=== PATIENT | female | born 1965 ===

== ENCOUNTER 2016-11-15 13:27 | Emergency (ER) | payer SELFPAY ==
--- NOTE | 2016-11-15 13:53 | ED PDOC ---
HPI: General Adult Time Seen by Provider: 11/15/16 13:36 Chief Complaint (Nursing): Female Genitourinary Chief Complaint (Provider): multiple medical complaints History Per: Patient Additional Complaint(s): 51-year-old female presents to emergency department for evaluation of ongoing abdominal pain for several months. Patient also has bilateral hip pain and pain to right calf. Patient relocated here from [place] in September and currently lives [facility] and has no primary doctor. She has known lrge fibroid tumor that has been bothering her for the past 2 weeks but has been presents for several years. She denies any current vaginal bleeding or discharge. She also has had bilateral hip pain for the past several months. Right calf started hurting her a few days ago. No recent trauma. Patient used to take tramadol and ibuprofen for the chronic hip pain but hasn't taken this medication in a couple of months. She denies fever or chills. Patient developed nausea and vomiting today. She arrives via ambulance for evaluation. She denies any chest pain, shortness of breath or dyspnea on exertion. Past Medical History Reviewed: Historical Data Vital Signs: Last Vital Signs Temp 98 F 11/15/16 18:41 Pulse 86 11/15/16 18:41 Resp 20 11/15/16 18:41 BP 149/74 11/15/16 18:41 Pulse Ox 99 11/15/16 19:41 - Medical History PMH: HTN (was no meds but off them for the past 3 months) - Family History Family History: States: No Known Family Hx - Living Arrangements Living Arrangements: Other (lives in prison) - Social History Current smoker - smoking cessation education provided: No Alcohol: None Drugs: Denies - Home Medications Home Medications: Ambulatory Orders Medication Instructions Recorded Naproxen [Naprosyn] 500 mg PO BID #20 tab 11/15/16 traMADol [Ultram] 50 mg PO TID PRN #15 tab 11/15/16 - Allergies Allergies/Adverse Reactions: Allergies Allergy/AdvReac Type Severity Reaction Status Date / Time No Known Allergies Allergy Verified 11/15/16 13:30 Review of Systems ROS Statement: Except As Marked, All Systems Reviewed And Found Negative Constitutional: Negative for: Fever, Chills Cardiovascular: Negative for: Chest Pain Gastrointestinal: Positive for: Nausea, Vomiting, Abdominal Pain (fibroid tumor) Genitourinary Female: Negative for: Dysuria, Frequency, Incontinence, Hematuria Musculoskeletal: Positive for: Other (chronic bilateral hip pain, right calf pain, no recent trauma) Neurological: Negative for: Weakness, Numbness, Headache, Dizziness Physical Exam - Reviewed Nursing Documentation Reviewed: Yes Vital Signs Reviewed: Yes - Physical Exam Appears: Positive for: Well Head Exam: Positive for: ATRAUMATIC, NORMAL INSPECTION Skin: Negative for: Rash Eye Exam: Positive for: Normal appearance, EOMI, PERRL Cardiovascular/Chest: Positive for: Regular Rate, Rhythm Respiratory: Positive for: Normal Breath Sounds Gastrointestinal/Abdominal: Positive for: Other (Morbidly obese abdomen with palpable mass noted to pelvic region, no rebound, no guarding) Extremity: Positive for: Calf Tenderness (right) Neurologic/Psych: Positive for: Alert, Oriented. Negative for: Aphasia, Facial Droop - Laboratory Results Result Diagrams: 11/15/16 12:00 11/15/16 12:00 Urine dip results: Positive for: Blood (moderate). Negative for: Leukocyte Esterase, Nitrate, Ketones, Glucose, Bilirubin, Protein - ECG O2 Sat by Pulse Oximetry: 99 Pulse Ox Interpretation: Normal - Other Rad Bilateral hips with pelvis x-rays X-Ray: Interpreted by Me, Viewed By Me X-Ray Interpretation: no fx, no dis Doppler right leg X-Ray: Read By Radiologist X-Ray Interpretation: no DVT CT abd and pelvis with IV contrast X-Ray: Read By Radiologist X-Ray Interpretation: see below Medical Decision Making Medical Decision Makin51 year old with abdominal pain and vomiting, bilateral hip pain and right calf pain Plan: CT abdomen and pelvis with IV contrast CBC CMP Lipase Urine dip IV fluids IV Toradol PO tramadol US right leg X-rays bilateral hips and pelvis CT: REPRODUCTIVE: There is a lobulated fibroid uterus measuring 9 cm AP by 11 cm with by 11 cm length. There is no fluid in the cul-de-sac. No acute intra- abdominal abnormality. Above CT results discussed with Dr. Worthington, OB external relations director who states to refer patient women's clinic. Patient aware of all diagnostic testing results. Patient was noted to be ambulatory to bathroom with steady gait. Prescriptions given for Naprosyn and tramadol for pain control. Patient was referred to clinic for follow-up. Disposition - Clinical Impression Clinical Impression: Hip pain, Fibroid - Patient ED Disposition Is Patient to be Admitted: No Counseled Patient/Family Regarding: Studies Performed, Diagnosis, Need For Followup, Rx Given - Disposition Referrals: [facility] [Provider Group] [facility] [Outside] Disposition: Routine/Home Disposition Time: 18:29 Condition: STABLE Additional Instructions: Take prescription medications as directed as needed for pain. Follow-up with clinic for further evaluation. Prescriptions: Naproxen [Naprosyn] 500 mg PO BID #20 tab traMADol [Ultram] 50 mg PO TID PRN #15 tab PRN Reason: Pain, Moderate (4-7) Instructions: Uterine Fibroids (ED), Hip Pain (ED) Results - Lab Results Lab Results: 11/15/16 12:00 WBC 5.4 RBC 5.42 H Hgb 12.1 Hct 38.3 MCV 70.8 L MCH 22.4 L MCHC 31.7 L RDW 17.0 H Plt Count 220 MPV 8.5 Neut % (Auto) 82.2 H Lymph % (Auto) 10.6 L [place] % (Auto) 5.5 Eos % (Auto) 1.4 Baso % (Auto) 0.3 Neut # 4.5 Lymph # 0.6 L [place] # 0.3 Eos # 0.1 Baso # 0.0 Sodium 143 Potassium 3.6 Chloride 104 Carbon Dioxide 23 Anion Gap 19 BUN 11 Creatinine 0.6 L Est GFR ( Amer) > 60 Est GFR (Non-Af Amer) > 60 Random Glucose 110 H Calcium 9.1 Total Bilirubin 0.8 AST 25 ALT 30 Alkaline Phosphatase 83 Total Protein 8.1 Albumin 4.5 Globulin 3.6 Albumin/Globulin Ratio 1.2 Lipase 79
[2016-11-15] MEDS ORDERED: Sodium Chloride 0.9% 1,000 ML IV STA (13:59)
[2016-11-15 14:59] LABS: BASO % 0.3 % (0.0-2.0); EOS # 0.1 K/uL (0.0-0.7); EOS % 1.4 % (0.0-4.0); HEMATOCRIT 38.3 % (34.0-47.0); LYMPH # 0.6 K/uL (1.0-4.3); LYMPH % 10.6 % (20.0-40.0); MEAN CELL VOLUME 70.8 fl (81.0-99.0); MEAN CORPUSCULAR HEMOGLOBIN 22.4 pg (27.0-31.0); MEAN CORPUSCULAR HGB CONC 31.7 g/dL (33.0-37.0); MEAN PLATELET VOLUME 8.5 fl (7.2-11.7); MONO # 0.3 K/uL (0.0-0.8); MONO % 5.5 % (0.0-10.0); NEUT # 4.5 K/uL (1.8-7.0); NEUT % 82.2 % (50.0-75.0); WHITE BLOOD COUNT 5.4 K/uL (4.8-10.8)
[2016-11-15 15:19] LABS: ALB/GLOB RATIO 1.2 (1.0-2.1); ALKALINE PHOSPHATASE 83 U/L (38-126); ALT/SGPT 30 U/L (9-52); AST/SGOT 25 U/L (14-36); BILIRUBIN,TOTAL 0.8 mg/dl (0.2-1.3); BLOOD UREA NITROGEN 11 mg/dl (7-17); CALCIUM 9.1 mg/dL (8.4-10.2); CARBON DIOXIDE 23 mmol/L (22-30); CHLORIDE 104 mmol/L (98-107); GFR AFRICAN-AMERICAN > 60; GLUCOSE,RANDOM 110 mg/dL (65-105); LIPASE 79 U/L (23-300); POTASSIUM 3.6 MMOL/L (3.6-5.0); SODIUM 143 mmol/l (132-148); TOTAL PROTEIN 8.1 G/DL (6.3-8.2)
--- NOTE | 2016-11-15 15:58 | RAD ---
PROCEDURE: Pelvis bilateral hips. HISTORY: bilateral hip pain COMPARISON: None TECHNIQUE: Standard protocol for this study/examination. FINDINGS: There are no osseous abnormalities to suggest fracture. The pelvic ring is intact. Preserved femoral-acetabular relationship. Negative study for protrusio, subluxation or dislocation. Degenerative changes: None. IMPRESSION: No acute findings related to/accounting for the clinical presentation. Concordant results with the preliminary interpretation rendered by the emergency department physician procedure.
--- NOTE | 2016-11-15 15:59 | US ---
PROCEDURE: Right lower extremity venous duplex Doppler. HISTORY: right calf pain COMPARISON: None available. TECHNIQUE: Common femoral, superficial femoral, popliteal and posterior tibial veins were evaluated. Flow was assessed with color Doppler, compressibility, assessment of phasic flow and augmentation response. FINDINGS: COMMON FEMORAL VEIN: Unremarkable. SUPERFICIAL FEMORAL VEIN: Unremarkable. POPLITEAL VEIN: Unremarkable. POSTERIOR TIBIAL VEIN: Unremarkable. OTHER FINDINGS: None. IMPRESSION: No evidence of deep venous thrombosis in the right lower extremity.
[2016-11-15] MEDS ORDERED: Iohexol 300 100 ML IJ ONE (16:55)
[2016-11-15] MEDS ORDERED: Sodium Chloride 0.9% 50 ML IV ONE (16:55)
--- NOTE | 2016-11-15 17:48 | CT ---
PROCEDURE: CT Abdomen and Pelvis with contrast HISTORY: abd pain, vomiting, assess fibroid tumor COMPARISON: None. TECHNIQUE: Contrast dose: 95 cc of Omni 300 Radiation dose: Total exam DLP = 1000 mGy-cm. This CT exam was performed using one or more of the following dose reduction techniques: Automated exposure control, adjustment of the mA and/or kV according to patient size, and/or use of iterative reconstruction technique. FINDINGS: LOWER THORAX: Unremarkable. LIVER: Unremarkable. No gross lesion or ductal dilatation. GALLBLADDER AND BILE DUCTS: Unremarkable. PANCREAS: Unremarkable. No gross lesion or ductal dilatation. SPLEEN: Unremarkable. ADRENALS: Unremarkable. No mass. KIDNEYS AND URETERS: Unremarkable. No hydronephrosis. No solid mass. VASCULATURE: Unremarkable. No aortic aneurysm. BOWEL: Unremarkable. No obstruction. No gross mural thickening. APPENDIX: Normal appendix. PERITONEUM: Unremarkable. No free fluid. No free air. LYMPH NODES: Unremarkable. No enlarged lymph nodes. BLADDER: Unremarkable. REPRODUCTIVE: There is a lobulated fibroid uterus measuring 9 cm AP by 11 cm with by 11 cm length. There is no fluid in the cul-de-sac. BONES: No acute fracture. OTHER FINDINGS: None. IMPRESSION: Lobulated fibroid uterus. No acute intra-abdominal abnormality
[2016-11-15 18:42] VITALS: BP 149/74; PULSE 86; RESP 20; TEMP 98
[2016-11-15 18:45] VITALS: O2SAT 99
== END 2016-11-15 19:00 | disposition home or self-care (01) ==
LOC: H.ER 13:27
DX: D25.9 Leiomyoma of uterus, unspecified (principal); M25.551 Pain in right hip; M25.552 Pain in left hip; M79.661 Pain in right lower leg; R10.9 Unspecified abdominal pain
CPT/HCPCS: 73522; 74177; 80053; 81025; 83690; 85025; 93971; 96360; 99285; J1885; J7040; Q9967